=== PATIENT | male | born 2000 | race Caucasian/White ===

== ENCOUNTER 2020-03-07 12:59 | Emergency (ER) | payer OTHER ==
[~2020-03-07] VITALS: Ht 182.9 cm; Wt 78.8 kg
[2020-03-07 13:36] LABS: AMPHETAMINE/METHAMPHETAMINE NEG (NEG); BARBITURATES NEG (NEG); BENZODIAZEPINES NEG (NEG); CANNABINOIDS NEG (NEG); COCAINE NEG (NEG); METHADONE NEG (NEG); OPIATES NEG (NEG); PHENCYCLIDINE NEG (NEG)
[2020-03-07 13:40] LABS: BASO % 1 % (0-3); EOS # 0.1 x10^3/uL (0.0-0.7); EOS % 1 % (0-3); HEMATOCRIT 47.2 % (39.0-53.0); HEMOGLOBIN 16.2 g/dL (13.0-17.5); LYMPH # 1.5 x10^3/uL (1.0-4.8); LYMPH % 31 % (24-48); MEAN CORPUSCULAR HEMOGLOBIN 30 pg (25-35); MEAN CORPUSCULAR HGB CONC 34 g/dL (31-37); MEAN CORPUSCULAR VOLUME 87 fL (79-100); MONO # 0.4 x10^3/uL (0.0-1.1); MONO % 8 % (0-9); NEUT # 2.8 x10^3uL (1.8-7.7); NEUT % 59 % (31-73); PLATELET COUNT 170 x10^3/uL (140-400); RED BLOOD COUNT 5.46 x10^6/uL (4.30-5.70); RED CELL DISTRIBUTION WIDTH 13.2 % (11.5-14.5); WHITE BLOOD COUNT 4.8 x10^3/uL (4.0-11.0)
[2020-03-07 13:47] LABS: BACTERIA,URINE 0 /HPF (0-FEW); BILIRUBIN,URINE NEG (NEG); CLARITY,URINE CLEAR; COLOR,URINE YELLOW; GLUCOSE,URINE NEG (NEG); NITRITE,URINE NEG (NEG); RBC,URINE 0 /HPF (0-2); SQUAMOUS EPITHELIAL CELL,UR OCC /LPF; UROBILINOGEN,URINE 0.2 mg/dL (0.2 mg/dL); WBC,URINE OCC /HPF (0-4)
[2020-03-07 13:48] LABS: CALCIUM 9.1 mg/dL (8.5-10.1); CREATININE 0.8 mg/dL (0.7-1.3); GFR 124.5; POTASSIUM 3.7 mmol/L (3.5-5.1)
[2020-03-07 13:52] LABS: ACETAMIN < 2.0 mcg/mL (10-30); ETHANOL < 10 mg/dL (0-10); SALIC 2.9 mg/dL (2.8-20.0)
[2020-03-07 13:53] LABS: ALBUMIN 3.8 g/dL (3.4-5.0); ALBUMIN/GLOBULIN RATIO 1.2 (1.0-1.7); MAGNESIUM 1.8 mg/dL (1.8-2.4); TOTAL BILIRUBIN 0.6 mg/dL (0.2-1.0); TOTAL PROTEIN 6.9 g/dL (6.4-8.2)
--- NOTE | 2020-03-07 14:03 | PHYS DOC ---
Past History Past Medical History: Anxiety, Depression, Other Additional Past Medical Histor: NEUROPATHY (SALVATORE ARCHER DO) Past Surgical History: Other Additional Past Surgical Histo: HERNIA, RIGHT EAR (SALVATORE ARCHER DO) Additional Smoking Information: 1/2 PACK Alcohol Use: None Social History Narrative: PAST METHAMPHETAMINE AND HEROIN ADDICTION, LAST USED 64 DAYS (SALVATORE ARCHER DO) General Adult EDM: Chief Complaint: SUICIDAL IDEATION HPI: HPI: Patient is a 19-year-old male who presented to ER today for evaluation of suicidal ideation. Patient is depressed, he is homeless. Patient's mother let him stay with her for a couple weeks but he will have to find a place to stay himself. Patient was found by his mother in the room with a rope around his neck.. Patient said he was about to hang himself but his mother stopped him. Patient has tried to kill himself in the past, he has tried to overdose before. Patient denied drinking or take any medication today. (SALVATORE ARCHER DO) Review of Systems: Review of Systems: Constitutional: Denies fever or chills Eyes: Denies change in visual acuity HENT: Denies nasal congestion or sore throat Respiratory: Denies cough or shortness of breath Cardiovascular: Denies chest pain or edema GI: Denies abdominal pain, nausea, vomiting, bloody stools or diarrhea : Denies dysuria Musculoskeletal: Denies back pain or joint pain Integument: Denies rash Neurologic: Denies headache, focal weakness or sensory changes Endocrine: Denies polyuria or polydipsia Lymphatic: Denies swollen glands Psychiatric: Positive for depression, anxiety (SALVATORE ARCHER DO) Heart Score: Risk Factors: Risk Factors: DM, Current or recent (<one month) smoker, HTN, HLP, family history of CAD, obesity. Risk Scores: Score 0 - 3: 2.5% MACE over next 6 weeks - Discharge Home Score 4 - 6: 20.3% MACE over next 6 weeks - Admit for Clinical Observation Score 7 - 10: 72.7% MACE over next 6 weeks - Early Invasive Strategies (SALVATORE ARCHER DO) Allergies: Allergies: Allergies Coded Allergies Type Severity Reaction Last Updated Verified No Known Drug Allergies 03/07/20 No (SALVATORE ARCHER DO) Physical Exam: PE: Constitutional: Well developed, well nourished, no acute distress, non-toxic appearance. [] HENT: Normocephalic, atraumatic, bilateral external ears normal, oropharynx moist, no oral exudates, nose normal. [] Eyes: PERRLA, EOMI, conjunctiva normal, no discharge. [] Neck: Normal range of motion, no tenderness, supple, no stridor. [] Cardiovascular:Heart rate regular rhythm, no murmur [] Lungs & Thorax: Bilateral breath sounds clear to auscultation [] Abdomen: Bowel sounds normal, soft, no tenderness, no masses, no pulsatile masses. NO SKIN ABRASION AROUND NECK AREA Skin: Warm, dry, no erythema, no rash. [] Back: No tenderness, no CVA tenderness. [] Extremities: No tenderness, no cyanosis, no clubbing, ROM intact, no edema. [] Neurologic: Alert and oriented X 3, normal motor function, normal sensory function, no focal deficits noted. [] Psychologic: Affect normal, judgement normal, mood normal. Positive for depression, suicidal idea (SALVATORE ARCHER DO) PE: Constitutional: Well developed, well nourished, no acute distress, non-toxic appearance HENT: Normocephalic, atraumatic, oropharynx moist Eyes: Conjunctiva normal, no discharge Neck: Normal range of motion, supple Lungs & Thorax: No respiratory distress, equal chest wall rise and fall Neurologic: Alert and oriented X 3, no focal deficits noted Psychologic: Affect flat, judgment normal (VANESA JORDAN DO) Current Patient Data: Labs: Laboratory Tests Test 03/07/20 13:10 03/07/20 13:20 Urine Collection Type Unknown Urine Color Yellow Urine Clarity Clear Urine pH 7.0 Urine Specific [place] 1.015 Urine Protein Neg (NEG-TRACE) Urine Glucose (UA) Neg mg/dL (NEG) Urine Ketones (Stick) Neg mg/dL (NEG) Urine Blood Neg (NEG) Urine Nitrite Neg (NEG) Urine Bilirubin Neg (NEG) Urine Urobilinogen Dipstick 0.2 mg/dL (0.2 mg/dL) Urine Leukocyte Esterase Neg (NEG) Urine RBC 0 /HPF (0-2) Urine WBC Occ /HPF (0-4) Urine Squamous Epithelial Cells Occ /LPF Urine Bacteria 0 /HPF (0-FEW) Urine Opiates Screen Neg (NEG) Urine Methadone Screen Neg (NEG) Urine Barbiturates Neg (NEG) Urine Phencyclidine Screen Neg (NEG) Urine Amphetamine/Methamphetamine Neg (NEG) Urine Benzodiazepines Screen Neg (NEG) Urine Cocaine Screen Neg (NEG) Urine Cannabinoids Screen Neg (NEG) Urine Ethyl Alcohol Neg (NEG) White Blood Count 4.8 x10^3/uL (4.0-11.0) Red Blood Count 5.46 x10^6/uL (4.30-5.70) Hemoglobin 16.2 g/dL (13.0-17.5) Hematocrit 47.2 % (39.0-53.0) Mean Corpuscular Volume 87 fL (79-100) Mean Corpuscular Hemoglobin 30 pg (25-35) Mean Corpuscular Hemoglobin Concent 34 g/dL (31-37) Red Cell Distribution Width 13.2 % (11.5-14.5) Platelet Count 170 x10^3/uL (140-400) Neutrophils (%) (Auto) 59 % (31-73) Lymphocytes (%) (Auto) 31 % (24-48) Monocytes (%) (Auto) 8 % (0-9) Eosinophils (%) (Auto) 1 % (0-3) Basophils (%) (Auto) 1 % (0-3) Neutrophils # (Auto) 2.8 x10^3uL (1.8-7.7) Lymphocytes # (Auto) 1.5 x10^3/uL (1.0-4.8) Monocytes # (Auto) 0.4 x10^3/uL (0.0-1.1) Eosinophils # (Auto) 0.1 x10^3/uL (0.0-0.7) Basophils # (Auto) 0.0 x10^3/uL (0.0-0.2) Sodium Level 138 mmol/L (136-145) Potassium Level 3.7 mmol/L (3.5-5.1) Chloride Level 104 mmol/L (98-107) Carbon Dioxide Level 26 mmol/L (21-32) Anion Gap 8 (6-14) Blood Urea Nitrogen 6 mg/dL (8-26) L Creatinine 0.8 mg/dL (0.7-1.3) Estimated GFR (Cockcroft-Gault) 124.5 BUN/Creatinine Ratio 8 (6-20) Glucose Level 94 mg/dL (70-99) Calcium Level 9.1 mg/dL (8.5-10.1) Magnesium Level 1.8 mg/dL (1.8-2.4) Total Bilirubin 0.6 mg/dL (0.2-1.0) Aspartate Amino Transferase (AST) 20 U/L (15-37) Alanine Aminotransferase (ALT) 30 U/L (16-63) Alkaline Phosphatase 94 U/L (46-116) Total Protein 6.9 g/dL (6.4-8.2) Albumin 3.8 g/dL (3.4-5.0) Albumin/Globulin Ratio 1.2 (1.0-1.7) Salicylates Level 2.9 mg/dL (2.8-20.0) Salicylate Last Dose Date Unknown Salicylate Last Dose Time Unknown Acetaminophen Level < 2.0 mcg/mL (10-30) L Acetaminophen Last Dose Date Unknown Acetaminophen Last Dose Time Unknown Ethyl Alcohol Level < 10 mg/dL (0-10) Vital Signs: Vital Signs Date Time Temp Pulse Resp B/P (MAP) Pulse Ox O2 Delivery O2 Flow Rate FiO2 03/07/20 13:10 97.8 75 20 145/78 (100) 99 Room Air (SALVATORE ARCHER DO) EKG: EKG: [] (SALVATORE ARCHER DO) Radiology/Procedures: Radiology/Procedures: [] (SALVATORE ARCHER DO) Course & Med Decision Making: Course & Med Decision Making Pertinent Labs and Imaging studies reviewed. (See chart for details) Patient was screened by telepsych cardiac cath tech, recommended inpatient psychiatric placement. Patient denied being exposed to anyone who was tested positive for COVID-19. However, all the inpatient psychiatric hospitals that we have called, wanted COVID-19 tested before he can be admitted. Patient care was endorsed to Dr. Artis Jordan at shift change, awaiting inpatient psychiatric placement. (SALVATORE ARCHER DO) Course & Med Decision Making 1800- Sign out received from Dr. Archer for patient awaiting psychiatric inpatient admission. Patient calm and sleeping in the room. Patient seen and evaluated by myself. Awaiting accepting facility and physician. 0600- Patient slept throughout night. No issues. Continue to await accepting physician and facility. Sign out given to Dr. Archer for further evaluation and hopefully final disposition. Discussed current findings and plan with patient, who acknowledges understanding and agreement. (VANESA JORDAN DO) Dragon Disclaimer: Dragfartun Disclaimer: This electronic medical record was generated, in whole or in part, using a voice recognition dictation system. (SALVATORE ARCHER DO) Departure Departure: Impression: Primary Impression: Suicidal ideation Additional Impression: Depression Qualified Codes: F32.9 - Major depressive disorder, single episode, unspecified Disposition: 65 XFER TO PSYCH HOSP/UNIT Condition: STABLE Referrals: PCP,NO (PCP) SALVATORE ARCHER DO March 07, 2020 14:03 VANESA JORDAN DO March 07, 2020 18:34
[2020-03-08] MEDS ORDERED: ONDANSETRON ODT 4 MG TAB.RAPDIS ONE (14:20)
[2020-03-08] MEDS ORDERED: ONDANSETRON ODT 4 MG TAB.RAPDIS PO ONE (14:30)
[2020-03-08] MEDS ORDERED: LORazepam 1 MG TABLET PO ONE (18:15)
[2020-03-08] MEDS ORDERED: diphenhydrAMINE HCL 25 MG CAPSULE PO ONE (20:45)
[2020-03-09] MEDS ORDERED: traZODone 50 MG TABLET. PO ONE (00:30)
[2020-03-09 10:58] VITALS: BP 136/70
== END 2020-03-09 12:23 ==
LOC: ER 12:59
DX: F32.9 Major depressive disorder, single episode, unspecified (principal); Z03.818 Encounter for observation for suspected exposure to other biological agents ruled out; R45.851 Suicidal ideations; F41.9 Anxiety disorder, unspecified; F17.200 Nicotine dependence, unspecified, uncomplicated
CPT/HCPCS: 36415; 80053; 80307; 80329; 81001; 83735; 85025; 85610; 85730; 87635; 99285; G0480

== ENCOUNTER 2020-04-06 07:48 | Emergency (ER) | payer OTHER ==
[~2020-04-06] VITALS: Ht 182.9 cm; Wt 78.8 kg
--- NOTE | 2020-04-06 08:06 | PHYS DOC ---
Past History Past Medical History: Anxiety, Depression, Other Additional Past Medical Histor: NEUROPATHY (COURTNEY SHEETS MD) Past Surgical History: Other Additional Past Surgical Histo: HERNIA, RIGHT EAR (COURTNEY SHEETS MD) Alcohol Use: None (COURTNEY SHEETS MD) General Adult EDM: Chief Complaint: SUICIDAL IDEATION HPI: HPI: Patient is a 19-year-old male who presents to the emergency department for evaluation. He states that he has been living with his mother since he was discharged from [place] about a week ago (he was sent there about a month ago from this facility after presenting with suicidal ideation). He states that he has been under a lot of stress living with his mother due to family issues and lots of arguments and strife in the home. He states he has felt suicidal again and this morning took for 1 mg Klonopin tablets, as well as 4 of his 250 mg Depakote tablets, as a suicide attempt. He brings the remainder of his medications with him, which include Abilify, and prazosin. He reports active suicidal ideation. He denies any hallucinations. There are no alleviating or exacerbating factors to his symptoms otherwise. (COURTNEY SHEETS MD) Review of Systems: Review of Systems: Constitutional: Denies fever or chills Eyes: Denies change in visual acuity HENT: Denies nasal congestion or sore throat Respiratory: Denies cough or shortness of breath Cardiovascular: Denies chest pain or edema GI: Denies abdominal pain, nausea, vomiting, bloody stools or diarrhea : Denies dysuria Musculoskeletal: Denies back pain or joint pain Integument: Denies rash Neurologic: Denies headache, focal weakness or sensory changes Endocrine: Denies polyuria or polydipsia Lymphatic: Denies swollen glands Psychiatric: Reports depression. (COURTNEY SHEETS MD) Heart Score: Risk Factors: Risk Factors: DM, Current or recent (<one month) smoker, HTN, HLP, family history of CAD, obesity. Risk Scores: Score 0 - 3: 2.5% MACE over next 6 weeks - Discharge Home Score 4 - 6: 20.3% MACE over next 6 weeks - Admit for Clinical Observation Score 7 - 10: 72.7% MACE over next 6 weeks - Early Invasive Strategies (COURTNEY SHEETS MD) Allergies: Allergies: Allergies Coded Allergies Type Severity Reaction Last Updated Verified No Known Drug Allergies 03/07/20 No (COURTNEY SHEETS MD) Physical Exam: PE: PHYSICAL EXAM: CONSTITUTIONAL: Well developed, well nourished HEAD: normocephalic, atraumatic EENT: PERRL, EOMI. Conjunctivae normal color, sclerae non-icteric; moist mucous membranes. NECK: Supple, non-tender; no meningismus. LUNGS: Lungs CTA, breathing even and unlabored. Normal air movement. HEART: Regular rate and rhythm, no murmur CHEST: No deformity; non-tender ABDOMEN: The abdomen is soft, and non-tender, no masses or bruits. EXTREM: Normal ROM; no deformity, no calf tenderness. Normal pulses palpable in all extremities. There is no pedal edema. SKIN: No rash; no diaphoresis NEURO: Alert; normal speech and cognition; CN's grossly intact; strength grossly intact without focal deficit. BACK: No CVA TTP. PSYCHIATRIC: Patient exhibits flat affect. Reports of suicidal ideation. (COURTNEY SHEETS MD) Current Patient Data: Labs: Laboratory Tests Test 04/06/20 08:12 04/06/20 08:14 White Blood Count 6.4 x10^3/uL Red Blood Count 5.12 x10^6/uL Hemoglobin 15.3 g/dL Hematocrit 43.4 % Mean Corpuscular Volume 85 fL Mean Corpuscular Hemoglobin 30 pg Mean Corpuscular Hemoglobin Concent 35 g/dL Red Cell Distribution Width 13.0 % Platelet Count 157 x10^3/uL Neutrophils (%) (Auto) 55 % Lymphocytes (%) (Auto) 37 % Monocytes (%) (Auto) 6 % Eosinophils (%) (Auto) 1 % Basophils (%) (Auto) 1 % Neutrophils # (Auto) 3.5 x10^3uL Lymphocytes # (Auto) 2.4 x10^3/uL Monocytes # (Auto) 0.4 x10^3/uL Eosinophils # (Auto) 0.1 x10^3/uL Basophils # (Auto) 0.1 x10^3/uL Sodium Level 139 mmol/L Potassium Level 3.6 mmol/L Chloride Level 105 mmol/L Carbon Dioxide Level 26 mmol/L Anion Gap 8 Blood Urea Nitrogen 11 mg/dL Creatinine 0.9 mg/dL Estimated GFR (Cockcroft-Gault) 108.7 Glucose Level 101 mg/dL Calcium Level 8.7 mg/dL Total Bilirubin 0.4 mg/dL Direct Bilirubin 0.1 mg/dL Aspartate Amino Transf (AST/SGOT) 14 U/L Alanine Aminotransferase (ALT/SGPT) 24 U/L Alkaline Phosphatase 91 U/L Total Protein 6.5 g/dL Albumin 3.6 g/dL Salicylates Level < 2.8 mg/dL Salicylate Last Dose Date Unknown Salicylate Last Dose Time Unknown Acetaminophen Level < 2.0 mcg/mL Acetaminophen Last Dose Date Unknown Acetaminophen Last Dose Time Unknown Valproic Acid (Depakene) Level < 3 mcg/mL Valproic Acid Last Dose Date 06/06/20 Valproic Acid Last Dose Time 08 Ethyl Alcohol Level < 10 mg/dL Urine Collection Type Unknown Urine Color Yellow Urine Clarity Clear Urine pH 6.5 Urine Specific [place] >=1.030 Urine Protein Neg Urine Glucose (UA) Neg mg/dL Urine Ketones (Stick) Neg mg/dL Urine Blood Trace Urine Nitrite Neg Urine Bilirubin Neg Urine Urobilinogen Dipstick 1.0 mg/dL Urine Leukocyte Esterase Neg Urine RBC Occ /HPF Urine WBC Occ /HPF Urine Squamous Epithelial Cells Few /LPF Urine Bacteria 0 /HPF Urine Opiates Screen Neg Urine Methadone Screen Neg Urine Barbiturates Neg Urine Phencyclidine Screen Neg Urine Amphetamine/Methamphetamine Neg Urine Benzodiazepines Screen Neg Urine Cocaine Screen Neg Urine Cannabinoids Screen Neg Urine Ethyl Alcohol Neg (JANEL GUERRERO DO) EKG: EKG: Normal sinus rhythm with a normal rate, normal axis, normal intervals, there are no acute ischemic ST/T changes. [] (COURTNEY SHEETS MD) Radiology/Procedures: Radiology/Procedures: [] (COURTNEY SHEETS MD) Course & Med Decision Making: Course & Med Decision Making Pertinent Labs studies reviewed. (See chart for details) Depakote level: <3 6:00 PM: Patient care will be turned over to Dr. Guerrero at shift change, pending final disposition. Report given. 04/07/2020 6:00 PM: Patient care was assumed at 6 AM shift change and the patient was monitored throughout the day. There is still no facility that has beds to accept the patient for psychiatric treatment although there are rumors that [facility] might have discharges tomorrow and he might be able to be transferred there. Patient care will be turned back over to Dr. Guerrero at shift change, pending final disposition. 04/08/2020: 3:25 PM: The patient condition remained stable he has remained stable throughout the day. After several days of attempting to find a facility, he was finally accepted to , under the care of Dr. Machado. (COURTNEY SHEETS MD) Course & Med Decision Making 1800 Care of pt assumed at shift change from Dr. Sheets. Pt resting comfortably at this time. 0010 patient continues to rest comfortably at this time. We are awaiting bed placement. [facility] is not willing to take this patient back. Further resources will be available later this morning for possible placement. Patient remains on monitor and is medically stable at this time 0600 Care of pt turned over to Dr Sheets at shift change. Efforts to find an open psychiatric bed overnight unsuccessful. He has been resting comfortably all night. 1800 Care of pt assumed at shift change. Still awaiting psychiatric bed availability. 0600 Pt resting comfortably overnight, watched TV last few hours. Awaiting placement. Care turned over to Dr. Sheets at shift change (JANEL GUERRERO DO) Dragon Disclaimer: Dragon Disclaimer: This electronic medical record was generated, in whole or in part, using a voice recognition dictation system. (COURTNEY SHEETS MD) Departure Departure: Impression: Primary Impression: Overdose of benzodiazepine Qualified Codes: T42.4X2A - Poisoning by benzodiazepines, intentional self- harm, initial encounter Additional Impressions: Suicidal ideation Depression Qualified Codes: F32.9 - Major depressive disorder, single episode, unspecified Disposition: 65 XFER TO PSYCH HOSP/UNIT Condition: STABLE Referrals: PCP,NO (PCP) Justification of Admission: Justification of Admission: Justification of Admission Dx: N/A (COURTNEY SHEETS MD) Justification of Admission Dx: N/A (JANEL GUERRERO DO) COURTNEY SHEETS MD Apr 06, 2020 08:06 JANEL GUERRERO DO Apr 06, 2020 17:55
--- NOTE | 2020-04-06 08:15 | EKG ---
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
[2020-04-06] MEDS ORDERED: HYDR25TA PO (08:25)
[2020-04-06] MEDS ORDERED: PRAZ1CAP2 PO (08:26)
[2020-04-06] MEDS ORDERED: ARIP5TAB13 PO (08:26)
[2020-04-06] MEDS ORDERED: CITA20TA6 PO (08:27)
[2020-04-06] MEDS ORDERED: DIVA-53 PO (08:28)
[2020-04-06 08:32] LABS: ANION GAP 8 (6-14); BASO # 0.1 x10^3/uL (0.0-0.2); BASO % 1 % (0-3); BLOOD UREA NITROGEN 11 mg/dL (8-26); CALCIUM 8.7 mg/dL (8.5-10.1); CARBON DIOXIDE 26 mmol/L (21-32); CHLORIDE 105 mmol/L (98-107); CREATININE 0.9 mg/dL (0.7-1.3); EOS # 0.1 x10^3/uL (0.0-0.7); EOS % 1 % (0-3); GFR 108.7; GLUCOSE 101 mg/dL (70-99); HEMATOCRIT 43.4 % (39.0-53.0); HEMOGLOBIN 15.3 g/dL (13.0-17.5); LYMPH # 2.4 x10^3/uL (1.0-4.8); LYMPH % 37 % (24-48); MEAN CORPUSCULAR HEMOGLOBIN 30 pg (25-35); MEAN CORPUSCULAR HGB CONC 35 g/dL (31-37); MEAN CORPUSCULAR VOLUME 85 fL (79-100); MONO # 0.4 x10^3/uL (0.0-1.1); MONO % 6 % (0-9); NEUT # 3.5 x10^3uL (1.8-7.7); NEUT % 55 % (31-73); PLATELET COUNT 157 x10^3/uL (140-400); POTASSIUM 3.6 mmol/L (3.5-5.1); RED BLOOD COUNT 5.12 x10^6/uL (4.30-5.70); SODIUM 139 mmol/L (136-145); WHITE BLOOD COUNT 6.4 x10^3/uL (4.0-11.0)
[2020-04-06 08:38] LABS: ACETAMIN < 2.0 mcg/mL (10-30); ETHANOL < 10 mg/dL (0-10); SALIC < 2.8 mg/dL (2.8-20.0)
[2020-04-06 08:40] LABS: AMPHETAMINE/METHAMPHETAMINE NEG (NEG); BARBITURATES NEG (NEG); BENZODIAZEPINES NEG (NEG); CANNABINOIDS NEG (NEG); COCAINE NEG (NEG); METHADONE NEG (NEG); OPIATES NEG (NEG); PHENCYCLIDINE NEG (NEG)
[2020-04-06 08:44] LABS: ALBUMIN 3.6 g/dL (3.4-5.0); ALK PHOS 91 U/L (46-116); ALT (SGPT) 24 U/L (16-63); AST (SGOT) 14 U/L (15-37); DIRECT BILIRUBIN 0.1 mg/dL (0.0-0.2); TOTAL BILIRUBIN 0.4 mg/dL (0.2-1.0); TOTAL PROTEIN 6.5 g/dL (6.4-8.2)
[2020-04-06 08:44] LABS: BACTERIA,URINE 0 /HPF (0-FEW); BILIRUBIN,URINE NEG (NEG); CLARITY,URINE CLEAR; COLOR,URINE YELLOW; GLUCOSE,URINE NEG (NEG); NITRITE,URINE NEG (NEG); RBC,URINE OCC /HPF (0-2); SQUAMOUS EPITHELIAL CELL,UR FEW /LPF; WBC,URINE OCC /HPF (0-4)
--- NOTE | 2020-04-06 09:54 | NUR ---
[facility] CALLED AND SPOKE WITH [facility]. THEY WOULD CONTACT US SHORTLY. @0161
[2020-04-06 09:57] LABS: VAL ACID < 3 mcg/mL (50-100)
[2020-04-08] MEDS ORDERED: NICOTINE 21MG PATCH. TD ONE ×2 (03:41→03:45)
[2020-04-08] MEDS ORDERED: NICOTINE 14MG PATCH. TD SCH (03:42)
[2020-04-08] MEDS ORDERED: NICOTINE 21MG PATCH. TD SCH (09:00)
[2020-04-08 10:09] VITALS: BP 126/61
== END 2020-04-08 16:35 ==
LOC: ER 07:48
DX: T42.6X2A Poisoning by other antiepileptic and sedative-hypnotic drugs, intentional self-harm, initial encounter (principal); F32.9 Major depressive disorder, single episode, unspecified; R45.851 Suicidal ideations; F41.9 Anxiety disorder, unspecified; Y92.89 Other specified places as the place of occurrence of the external cause
CPT/HCPCS: 36415; 80048; 80076; 80164; 80307; 80329; 81001; 85025; 93005; 99285; G0480